=== PATIENT | male | born 1935 | race Two or more races ===

== ENCOUNTER 2017-09-18 12:39 | Inpatient (IN) | payer MEDICARE, OTHER ==
[~2017-09-18] VITALS: Ht 157.5 cm; Wt 67.0 kg
[2017-09-18 14:32] LABS: Basophils # (auto) 0.1 uL; Basophils % (auto) 0.7 % (0.0-2.0); Eosinophils # (auto) 0.3 uL; Hematocrit 39.7 % (41.0-53.0); Hemoglobin 13.9 g/dL (13.5-17.5); Lymphocytes # (auto) 2.6 uL; Lymphocytes % (auto) 31.5 % (10.0-50.0); Mean Corpuscular Hgb Conc. 34.9 g/dL (32.0-36.0); Mean Corpuscular Volume 94.5 fL (80.0-100.0); Monocytes # (auto) 0.6 uL; Monocytes % (auto) 6.8 % (0.0-12.0); Neutrophils # (auto) 4.7 uL; Platelet Count (auto) 212 10^3/uL (140-450); Red Cell Distribution Width 13.3 % (11.8-14.3); White Blood Cell 8.3 10^3/uL (4.4-10.8)
[2017-09-18 15:01] LABS: Alanine Aminotransferase 23 U/L (16-61); Albumin 3.8 g/dL (3.4-5.0); Alkaline Phosphatase 107 U/L (45-117); Anion Gap 7 (5-15); Aspartate Aminotransferase 12 U/L (15-37); Bilirubin, Total 0.4 mg/dL (0.2-1.0); Blood Urea Nitrogen 27 mg/dL (7-18); Calcium 8.7 mg/dL (8.5-10.1); Carbon Dioxide 28 mmol/L (21-32); Chloride 101 mmol/L (98-107); GFR African American 65 mL/min; GFR Non-African American 54 mL/min; Glucose 240 mg/dL (74-106); Potassium 4.5 mmol/L (3.5-5.1); Sodium 136 mmol/L (136-145); Total Protein 7.8 g/dL (6.4-8.2)
[2017-09-18] MEDS ORDERED: ATORVASTATIN 20 MG TAB PO ONE (21:15)
[2017-09-18] MEDS ORDERED: HYDROcodone-ACET 5/325MG TAB PO PRN (21:15)
[2017-09-18] MEDS ORDERED: DEXTROSE (50%) 50ML SYRG IV PRN (21:15)
[2017-09-18] MEDS ORDERED: ACETAMINOPHEN 325 MG TAB PO PRN (21:15)
[2017-09-18] MEDS ORDERED: TEMAZEPAM 15 MG CAP PO PRN (21:15)
[2017-09-18] MEDS ORDERED: ONDANSETRON HCL 4 MG/2 ML VIAL IV PRN (21:15)
[2017-09-18] MEDS ORDERED: ATORVASTATIN 20 MG TAB PO SCH (22:00)
[2017-09-18 22:25] VITALS: BP 145/62
[2017-09-18 22:57] LABS: Cholesterol 202 mg/dL (< 200); HDL Cholesterol 29 mg/dL (40-59); LDL Cholesterol 135 mg/dL (< 100); Triglycerides 341 mg/dL (< 150)
[2017-09-18] MEDS: FAMOTIDINE 20 MG TAB PO SCH (23:05)
[2017-09-18] MEDS: ACCU-CHEK COMFORT CURVE STRIP VI SCH (23:56)
[2017-09-19] MEDS ORDERED: InsuLIN REG 1unit/0.01ml Soln (100units/ml) SC SCH
[2017-09-19 05:30] VITALS: BP 135/68
[2017-09-19 06:23] LABS: Basophils # (auto) 0.1 uL; Basophils % (auto) 0.9 % (0.0-2.0); Eosinophils # (auto) 0.4 uL; Eosinophils % (auto) 6.7 % (0.0-7.0); Hematocrit 39.6 % (41.0-53.0); Hemoglobin 13.6 g/dL (13.5-17.5); Lymphocytes # (auto) 1.8 uL; Lymphocytes % (auto) 28.5 % (10.0-50.0); Mean Corpuscular Hemoglobin 32.3 pg (28.0-32.0); Mean Corpuscular Hgb Conc. 34.2 g/dL (32.0-36.0); Mean Corpuscular Volume 94.4 fL (80.0-100.0); Monocytes # (auto) 0.6 uL; Monocytes % (auto) 9.3 % (0.0-12.0); Neutrophils # (auto) 3.5 uL; Neutrophils % (auto) 54.6 % (37.0-80.0); Nucleated Red Blood Cells % 0.1 %; Platelet Count (auto) 212 10^3/uL (140-450); Red Cell Distribution Width 13.5 % (11.8-14.3); White Blood Cell 6.4 10^3/uL (4.4-10.8)
[2017-09-19] MEDS: ACCU-CHEK COMFORT CURVE STRIP VI SCH ×4 (06:30→21:11)
[2017-09-19] MEDS: metFORMIN HYDROCHLORIDE 500 MG TAB PO SCH ×2 (06:31→18:51)
[2017-09-19 06:35] LABS: Albumin 3.4 g/dL (3.4-5.0); Calcium 8.4 mg/dL (8.5-10.1); Potassium 3.9 mmol/L (3.5-5.1)
[2017-09-19 06:37] LABS: BUN/Creatinine Ratio 20.5
[2017-09-19 06:46] LABS: Bilirubin, Total 0.4 mg/dL (0.2-1.0); Total Protein 7.3 g/dL (6.4-8.2)
[2017-09-19] MEDS ORDERED: ASPirin 81 mg TAB PO SCH (10:00)
[2017-09-19 10:26] VITALS: BP 150/87
[2017-09-19] MEDS: ENOXAPARIN SOD 40 MG/0.4 ML SYRINGE SC SCH (11:08)
[2017-09-19] MEDS: FAMOTIDINE 20 MG TAB PO SCH ×2 (11:08→20:56)
[2017-09-19 12:57] VITALS: BP 138/85
[2017-09-19 17:49] VITALS: BP 137/85
[2017-09-19] MEDS: ATORVASTATIN 20 MG TAB PO SCH (21:05)
[2017-09-19] MEDS: METOPROLOL TARTRATE 25 MG TAB PO SCH (21:05)
[2017-09-19 22:00] VITALS: BP 125/74
[2017-09-19] MEDS ORDERED: ATORVASTATIN 20 MG TAB PO SCH (22:00)
[2017-09-20] MEDS ORDERED: GLIM4TAB42 PO (00:35)
[2017-09-20] MEDS ORDERED: MULT1TAB PO (00:35)
[2017-09-20] MEDS ORDERED: SITA50TA28 PO (00:35)
[2017-09-20 05:30] VITALS: BP 137/70
[2017-09-20] MEDS: ACCU-CHEK COMFORT CURVE STRIP VI SCH ×4 (06:44→23:54)
[2017-09-20] MEDS: metFORMIN HYDROCHLORIDE 500 MG TAB PO SCH ×2 (06:56→18:06)
[2017-09-20 09:43] VITALS: BP 119/66
[2017-09-20] MEDS: ASPirin 81 mg TAB PO SCH (09:53)
[2017-09-20] MEDS: METOPROLOL TARTRATE 25 MG TAB PO SCH ×2 (09:54→21:42)
[2017-09-20] MEDS: FAMOTIDINE 20 MG TAB PO SCH (09:54)
[2017-09-20] MEDS: ENOXAPARIN SOD 40 MG/0.4 ML SYRINGE SC SCH (09:55)
[2017-09-20 13:07] VITALS: BP 151/74
[2017-09-20 13:40] VITALS: BP 136/73
[2017-09-20 17:40] VITALS: BP 134/65
[2017-09-20] MEDS: ATORVASTATIN 20 MG TAB PO SCH (21:42)
[2017-09-20 21:46] VITALS: BP 157/84
[2017-09-21 05:05] VITALS: BP 145/80
[2017-09-21] MEDS: metFORMIN HYDROCHLORIDE 500 MG TAB PO SCH ×2 (06:19→18:00)
[2017-09-21] MEDS: ACCU-CHEK COMFORT CURVE STRIP VI SCH ×3 (06:19→18:00)
[2017-09-21 09:08] VITALS: BP 156/76
[2017-09-21] MEDS: FAMOTIDINE 20 MG TAB PO SCH (10:10)
[2017-09-21] MEDS: ASPirin 81 mg TAB PO SCH (10:10)
[2017-09-21] MEDS: ENOXAPARIN SOD 40 MG/0.4 ML SYRINGE SC SCH (10:11)
[2017-09-21] MEDS: METOPROLOL TARTRATE 25 MG TAB PO SCH ×2 (10:11→21:54)
[2017-09-21 12:30] VITALS: BP 139/79
[2017-09-21 13:39] VITALS: BP 139/79
[2017-09-21 17:05] VITALS: BP 117/66
[2017-09-21] MEDS: ATORVASTATIN 20 MG TAB PO SCH (21:54)
[2017-09-21 22:03] VITALS: BP 134/73
[2017-09-22] MEDS: ACCU-CHEK COMFORT CURVE STRIP VI SCH ×4 (00:22→18:00)
[2017-09-22 05:03] VITALS: BP 151/82
[2017-09-22] MEDS: metFORMIN HYDROCHLORIDE 500 MG TAB PO SCH ×2 (05:59→19:18)
[2017-09-22 08:00] VITALS: BP_SYST 110; BP_SYST 134; BP_DIAS 68; BP_DIAS 73
[2017-09-22] MEDS: FAMOTIDINE 20 MG TAB PO SCH (09:28)
[2017-09-22] MEDS: ASPirin 81 mg TAB PO SCH (09:28)
[2017-09-22] MEDS: METOPROLOL TARTRATE 25 MG TAB PO SCH ×2 (09:29→21:57)
[2017-09-22] MEDS: ENOXAPARIN SOD 40 MG/0.4 ML SYRINGE SC SCH (09:30)
[2017-09-22 12:00] VITALS: BP 139/78
[2017-09-22 16:00] VITALS: BP 121/64
[2017-09-22 22:03] VITALS: BP 128/66
[2017-09-22] MEDS: ATORVASTATIN 20 MG TAB PO SCH (22:16)
[2017-09-23] MEDS: ACCU-CHEK COMFORT CURVE STRIP VI SCH ×3 (00:22→11:51)
[2017-09-23 05:09] VITALS: BP 127/75
[2017-09-23] MEDS: metFORMIN HYDROCHLORIDE 500 MG TAB PO SCH (06:26)
[2017-09-23 08:20] VITALS: BP 140/77
[2017-09-23] MEDS: FAMOTIDINE 20 MG TAB PO SCH (10:47)
[2017-09-23] MEDS: ASPirin 81 mg TAB PO SCH (10:48)
[2017-09-23] MEDS: ENOXAPARIN SOD 40 MG/0.4 ML SYRINGE SC SCH (10:48)
[2017-09-23] MEDS: METOPROLOL TARTRATE 25 MG TAB PO SCH ×2 (10:48→11:48)
[2017-09-23 12:23] VITALS: BP 129/70
[2017-09-23 13:38] VITALS: BP 140/77
[2017-09-23 13:54] VITALS: BP 140/77
== END 2017-09-23 14:53 | disposition home or self-care (01) | DRG 66 ==
LOC: ER 12:39 → TELE 12:40 → EAST 22:05 → TELE-EAST 09-20 23:38
PROVIDERS: ADMIT Nurse Practitioner; ATTEND Family Medicine
DX: I63.9 Cerebral infarction, unspecified (principal); E11.65 Type 2 diabetes mellitus with hyperglycemia; E11.22 Type 2 diabetes mellitus with diabetic chronic kidney disease; N18.3 Chronic kidney disease, stage 3 (moderate); E66.3 Overweight; E78.00 Pure hypercholesterolemia, unspecified; G47.10 Hypersomnia, unspecified; I13.10 Hypertensive heart and chronic kidney disease without heart failure, with stage 1 through stage 4 chronic kidney disease, or unspecified chronic kidney disease; Z79.82 Long term (current) use of aspirin; Z79.899 Other long term (current) drug therapy; Z82.49 Family history of ischemic heart disease and other diseases of the circulatory system; Z83.3 Family history of diabetes mellitus; Z79.84 Long term (current) use of oral hypoglycemic drugs; Z90.49 Acquired absence of other specified parts of digestive tract; Z68.27 Body mass index [BMI] 27.0-27.9, adult
CPT/HCPCS: 36415; 70450; 70551; 71046; 80053; 80061; 82962; 83036; 84484; 85025; 93005; 93306; 93886